=== PATIENT | female | born 1965 | race Caucasian/White ===

== ENCOUNTER 2025-03-28 13:19 | Emergency (ER) | payer MEDICAID, OTHER ==
[~2025-03-28] VITALS: Ht 157.5 cm; Wt 81.0 kg
[2025-03-28 13:35] VITALS: TEMP 36.9; O2SAT 98
[2025-03-28 17:00] VITALS: BP 143/76; PULSE 60; RESP 18; O2SAT 100
== END 2025-03-28 17:06 | disposition home or self-care (01) ==
LOC: ER 13:19
DX: H53.8 Other visual disturbances (principal); I10 Essential (primary) hypertension; Z98.890 Other specified postprocedural states
CPT/HCPCS: 99284